=== PATIENT | female | born 1965 | race Caucasian/White ===

== ENCOUNTER → 2016-11-28 | Outpatient (CLI) | payer OTHER | LOC: FIMAGING 14:56 | PROVIDERS: ATTEND Obstetrics & Gynecology | DX: Z12.31 Encounter for screening mammogram for malignant neoplasm of breast (principal); Z80.3 Family history of malignant neoplasm of breast | CPT/HCPCS: G0202 ==

== ENCOUNTER → 2016-12-16 | Outpatient (CLI) | payer OTHER | LOC: FIMAGING 17:40 | PROVIDERS: ATTEND Orthopaedic Surgery Orthopaedic Surgery of the Spine | DX: M53.3 Sacrococcygeal disorders, not elsewhere classified (principal) ==

== ENCOUNTER → 2016-12-30 | Outpatient (CLI) | payer OTHER ==
[~2016-12-30] MED LIST: IOPAMIDOL (ISOVUE-300) 100 ML BTL ONE
== END ==
LOC: FIMAGING 15:53
PROVIDERS: ATTEND Urology
DX: N20.0 Calculus of kidney (principal); N28.1 Cyst of kidney, acquired; K57.30 Diverticulosis of large intestine without perforation or abscess without bleeding
CPT/HCPCS: Q9967

== ENCOUNTER 2017-01-14 12:03 | Day surgery (SDC) | payer OTHER ==
[2017-01-14] MEDS ORDERED: NS 1,000 ML IV SCH (14:15)
[2017-01-14] MEDS ORDERED: TRIAMCINOLONE ACETONIDE 200 MG/5 ML MDV IM ONE (15:00)
[2017-01-14] MEDS ORDERED: IOPAMIDOL (ISOVUE-M 300) 15 ML VIAL ONE (15:00)
[2017-01-14] MEDS ORDERED: fentaNYL 100 MCG/2 ML INJ ONE (15:06)
[2017-01-14] MEDS ORDERED: MIDAZOLAM 2 MG/2 ML VIAL ONE (15:07)
[2017-01-14 16:15] VITALS: BP 94/53; RESP 18; O2SAT 100
== END 2017-01-14 16:30 | disposition home or self-care (01) ==
LOC: FIMAGING 12:03
PROVIDERS: ATTEND Radiology Diagnostic Radiology
DX: M53.3 Sacrococcygeal disorders, not elsewhere classified (principal); Z87.442 Personal history of urinary calculi
CPT/HCPCS: J2250; J3010; J3301; Q9967

== ENCOUNTER → 2017-06-04 | Outpatient (CLI) | payer OTHER | LOC: FIMAGING 17:01 | PROVIDERS: ATTEND Internal Medicine | DX: L52 Erythema nodosum (principal) ==

== ENCOUNTER 2017-07-29 11:22 | Outpatient (CLI) | payer OTHER ==
[2017-07-29] MEDS ORDERED: GADOBUTROL 10 ML VIAL IVP ONE (12:58)
[2017-07-29] MEDS ORDERED: PROPOFOL/EMULSION 500 MG/50 ML BOTTLE IV ONE (13:04)
[2017-07-29] MEDS ORDERED: NS 1,000 ML IV SCH (13:15)
[2017-07-29] MEDS ORDERED: ONDANSETRON 4 MG/2 ML VIAL IVP PRN (13:30)
[2017-07-29] MEDS ORDERED: NALOXONE HCL 0.4 MG/ML INJ IVP PRN (13:30)
[2017-07-29] MEDS ORDERED: ALBUTEROL 3 ML DEYVIAL IH PRN (13:30)
[2017-07-29] MEDS ORDERED: fentaNYL 100 MCG/2 ML INJ IVP PRN (13:30)
--- NOTE | 2017-07-29 13:32 | PDANEPAE ---
ANE History of Present Illness MRI Brain ANE Past Medical History - Cardiovascular History Hx Hypertension: Yes Hx Arrhythmias: No Hx Chest Pain: Yes Hx Coronary Artery / Peripheral Vascular Disease: No Hx CHF / Valvular Disease: No Hx Palpitations: Yes Cardiovascular History Comment: mitral valve prolapse as young woman, resolved. Norm heart cath 4-5 YRS AGO - Pulmonary History Hx COPD: No Hx Asthma/Reactive Airway Disease: No Hx Recent Upper Respiratory Infection: No Hx Oxygen in Use at Home: No Hx Sleep Apnea: Yes Sleep Apnea Screening Result - Last Documented: Positive Pulmonary History Comment: BRONCHITIS 08/2013 - Neurologic History Hx Cerebrovascular Accident: No Hx Seizures: No Hx Dementia: No Neurologic History Comment: peripheral neuropathy-med. Autonomic (arythmo) myalgia-med. - Endocrine History Hx Diabetes: Yes Endocrine History Comment: NIDDM. PITUITARY LESION - MONITORED - Renal History Hx Renal Disorders: No Renal History Comment: CYSTITIS - Liver History Hx Hepatic Disorders: No Hepatic History Comment: PANCREATITIS POST GALL - Neurological & Psychiatric Hx Hx Neurological and Psychiatric Disorders: Yes Neurological / Psychiatric History Comment: ANXIETY - Cancer History Hx Cancer: No - Congenital Disorder History Hx Congenital Disorders: No - GI History Hx Gastrointestinal Disorders: Yes Gastrointestinal History Comment: HERNIA INSIDE STOMACH (endoscopy in 2014 shows that hernia is "gone"). ACID REFLUX - Other Health History Other Health History: ERYTHROMYEALGIA. NEUROPATHY. Easy Bruising. ROSASCEA - Chronic Pain History Chronic Pain: Yes (FEET,LEGS, erythromyalgia) - Surgical History Prior Surgeries: KIDNEY STONES - STENT PLACEMENT 2014. ENDOSCOPY/COLONOSCOPY 2014. LAP TONEY 2006. MIRANDA PROCEDURE 2004. . REMVL CYST FINGER. FOOT PLANTAR FASCIA ANE Review of Systems Review of Systems: - Exercise capacity METS (RN): 3 METS ANE Patient History - Allergies Allergies/Adverse Reactions: nitrofurantoin [From Macrobid] Allergy (Severe, Verified 01/12/17 16:16) Fever liraglutide [From Victoza] Allergy (Intermediate, Verified 01/12/17 16:16) Vomiting hydrocodone bitartrate [From Vicodin] Allergy (Mild, Verified 01/12/17 16:16) Itching - Home Medications Home Medications: Metformin 1000 mg 1,000 mg DAILY 12/14/15 [Last Taken 07/28/17] Neurontin 1,200 mg TID 12/14/15 [Last Taken 07/29/17] Omeprazole 20 mg PO PRN 12/14/15 [Last Taken Unknown] Vitamin D2 50,000 units PO MWF 12/14/15 [Last Taken 07/24/17] Ketamine 1 spray NASAL BID PRN 01/23/16 [Last Taken 07/28/17] BENADRYL 50 mg PO PRN 01/12/17 [Last Taken 07/28/17] Bystolic PO HS 07/24/17 [Last Taken 07/28/17] HCTZ (*) PO HS 07/24/17 [Last Taken 07/28/17] Losartan Potassium PO HS 07/24/17 [Last Taken 07/28/17] Trulicity 1.5 mg INJ Q7D 07/24/17 [Last Taken 07/27/17] - Smoking Hx Smoking Status: Never smoked - Family Anes Hx Family Hx Anesthesia Complications: Mother-allergies to anesthesia. ANE Labs/Vital Signs - Vital Signs Blood Pressure: 118/83 Heart Rate: 82 Respiratory Rate: 18 O2 Sat (%): 94 Height: 170.18 cm Weight: 92.986 kg ANE Physical Exam - Airway Neck exam: FROM Mallampati Score: Class 2 Mouth exam: normal dental/mouth exam - Pulmonary Pulmonary: clear to auscultation - Cardiovascular Cardiovascular: regular rate and rhythym - ASA Status ASA Status: III ANE Anesthesia Plan Anesthesia Plan: GA w LMA
[2017-07-29 15:03] VITALS: BP 115/78
== END 2017-07-29 15:07 | disposition home or self-care (01) ==
LOC: FIMAGING 11:22
PROVIDERS: ATTEND Physician Assistant
DX: G90.09 Other idiopathic peripheral autonomic neuropathy (principal); G44.221 Chronic tension-type headache, intractable; M50.322 Other cervical disc degeneration at C5-C6 level; J32.0 Chronic maxillary sinusitis; Z86.018 Personal history of other benign neoplasm
CPT/HCPCS: A9585; J2704

== ENCOUNTER → 2018-03-17 | Outpatient (CLI) | payer OTHER | LOC: FIMAGING 07:42 | PROVIDERS: ATTEND Obstetrics & Gynecology | DX: N94.89 Other specified conditions associated with female genital organs and menstrual cycle (principal); D25.2 Subserosal leiomyoma of uterus ==

== ENCOUNTER → 2018-04-05 | Outpatient (CLI) | payer OTHER | LOC: BMCIMAGING 14:36 | PROVIDERS: ATTEND Nurse Practitioner Adult Health | DX: S80.11XA Contusion of right lower leg, initial encounter (principal) ==